=== PATIENT | male | born 2005 | race African-American/Black ===

== ENCOUNTER 2024-05-07 22:45 | Emergency (ER) | payer OTHER ==
[2024-05-07] MEDS ORDERED: Ibuprofen 200 MG TAB ONE (23:18)
== END 2024-05-08 00:20 | disposition home or self-care (01) ==
LOC: CSHERS 22:45
DX: J11.1 Influenza due to unidentified influenza virus with other respiratory manifestations (principal); Z55.6 Problems related to health literacy
CPT/HCPCS: 71045; 87428